=== PATIENT | male | born 1995 | race African-American/Black ===

== ENCOUNTER 2017-09-25 13:24 | Emergency (ER) | payer MEDICAID | END 2017-09-25 15:15 | disposition home or self-care (01) | LOC: ERS 13:24 | DX: M67.431 Ganglion, right wrist (principal); G43.909 Migraine, unspecified, not intractable, without status migrainosus; F31.9 Bipolar disorder, unspecified; F17.210 Nicotine dependence, cigarettes, uncomplicated; Z79.899 Other long term (current) drug therapy | CPT/HCPCS: 99282 ==

== ENCOUNTER 2019-06-17 20:23 | Emergency (ER) | payer MEDICAID, SELFPAY ==
[2019-06-17] MEDS ORDERED: Bupivacaine 0.5% 10 ML VIAL ONE (20:44)
== END 2019-06-17 21:00 | disposition home or self-care (01) ==
LOC: ERS 20:23
DX: K04.7 Periapical abscess without sinus (principal); G43.909 Migraine, unspecified, not intractable, without status migrainosus; F31.9 Bipolar disorder, unspecified; F32.9 Major depressive disorder, single episode, unspecified; F17.210 Nicotine dependence, cigarettes, uncomplicated; Z79.899 Other long term (current) drug therapy
CPT/HCPCS: 64400; J3490

== ENCOUNTER 2019-07-10 14:30 | Emergency (ER) | payer SELFPAY ==
[2019-07-10] MEDS ORDERED: Lidocaine 1% (PF) 30 ML VIAL ONE (15:39)
== END 2019-07-10 16:16 | disposition home or self-care (01) ==
LOC: ERS 14:30
DX: K04.7 Periapical abscess without sinus (principal); G43.909 Migraine, unspecified, not intractable, without status migrainosus; F17.210 Nicotine dependence, cigarettes, uncomplicated; F31.9 Bipolar disorder, unspecified; Z79.899 Other long term (current) drug therapy
CPT/HCPCS: 41800; J2001

== ENCOUNTER 2024-09-26 10:08 | Outpatient (CLI) | payer OTHER ==
[2024-09-26 10:57] LABS: #Basophils Less than 0.03 10x3/uL (0.0-0.2); %Basophils 0.2 % (0.0-1.0); %Eosinophils 2.1 % (0.0-10.0); %Lymphocytes 32.8 % (21.0-51.0); %Monocytes 8.7 % (0.0-10.0); Hematocrit 40.8 % (42.0-52.0); Hemoglobin 13.3 g/dL (14.0-18.0); Mean Corpuscular HGB CONC 32.6 g/dL (32.0-36.0); Mean Corpuscular Hemoglobin 28.2 pg (27.0-31.0); Mean Corpuscular Volume 86.4 fL (78.0-98.0); Platelet Count 199 10x3/uL (130-400); RBC Distribution Width 13.7 % (11.5-14.5); Red Blood Cell (RBC) Count 4.72 mill/uL (4.70-6.10)
== END 2024-09-26 10:09 | disposition home or self-care (01) ==
LOC: LABBT 10:08
PROVIDERS: ATTEND Orthopaedic Surgery Hand Surgery
DX: Z01.812 Encounter for preprocedural laboratory examination (principal); D17.21 Benign lipomatous neoplasm of skin and subcutaneous tissue of right arm; M67.449 Ganglion, unspecified hand
CPT/HCPCS: 85025

== ENCOUNTER 2024-09-30 08:47 | Day surgery (SDC) | payer OTHER ==
[2024-09-26 10:26] VITALS: BMI 23.6
[2024-09-30] MEDS ORDERED: Bupivacaine PF 0.5% 30 ML VIAL ONE (09:14)
[2024-09-30] MEDS ORDERED: Betamet Acet/Betamet Na Ph 30 MG/5 ML VIAL ONE (09:14)
[2024-09-30] MEDS ORDERED: Bacitracin Zinc Ointment 30 gm TUBE ONE (09:14)
[2024-09-30] MEDS ORDERED: PROPOFOL 20 ML ONE (09:20)
[2024-09-30] MEDS ORDERED: Midazolam HCl 2 mg/2 ml Vial ONE (09:20)
[2024-09-30] MEDS ORDERED: fentaNYL PF 100 MCG/2 ML SYRINGE ONE (09:20)
[2024-09-30] MEDS ORDERED: CEFAZOLIN 2 GM VIAL ONE (09:25)
[2024-09-30] MEDS ORDERED: Ondansetron PF 4 MG/2 ML Vial ONE (10:26)
[2024-09-30] MEDS ORDERED: Lidocaine 1% PF 5 ML VIAL ONE (10:26)
[2024-09-30] MEDS ORDERED: Dexamethasone 20 MG/5 ML VIAL ONE (10:26)
[2024-09-30] MEDS ORDERED: Ketorolac Tromethamine 30 MG (1 mL) VIAL ONE (11:23)
== END 2024-09-30 12:38 | disposition home or self-care (01) ==
LOC: SDC 08:47
PROVIDERS: ATTEND Orthopaedic Surgery Hand Surgery
PROC: 0JBJ0ZZ Excision of Right Hand Subcutaneous Tissue and Fascia, Open Approach (ICD-10-PCS; principal; 2024-09-30)
DX: L72.0 Epidermal cyst (principal); S69.81XA Other specified injuries of right wrist, hand and finger(s), initial encounter; D17.21 Benign lipomatous neoplasm of skin and subcutaneous tissue of right arm; M67.441 Ganglion, right hand; F32.A Depression, unspecified; F17.200 Nicotine dependence, unspecified, uncomplicated; Z91.041 Radiographic dye allergy status; Z91.013 Allergy to seafood; Z79.1 Long term (current) use of non-steroidal anti-inflammatories (NSAID); V49.9XXA Car occupant (driver) (passenger) injured in unspecified traffic accident, initial encounter
CPT/HCPCS: 88304; A6223; J0665; J0702; J1100; J1885; J2250; J2405; J2704

== ENCOUNTER 2025-03-09 10:13 | Emergency (ER) | payer MEDICAID, SELFPAY ==
[2025-03-09] MEDS ORDERED: Ibuprofen 800 MG TAB ONE (10:54)
[2025-03-09] MEDS ORDERED: Methocarbamol 500 MG TAB ONE (10:57)
== END 2025-03-09 11:56 | disposition home or self-care (01) ==
LOC: ERS 10:13
DX: M43.6 Torticollis (principal); F17.210 Nicotine dependence, cigarettes, uncomplicated
CPT/HCPCS: 70450; 72125

== ENCOUNTER 2025-04-25 00:21 | Emergency (ER) | payer MEDICAID ==
[2025-04-25] MEDS ORDERED: Lidocaine 1% w/Epinephrine 1:100K 20 ML VIAL ONE (02:11)
== END 2025-04-25 02:34 | disposition home or self-care (01) ==
LOC: ERS 00:21
DX: S61.412A Laceration without foreign body of left hand, initial encounter (principal); F17.210 Nicotine dependence, cigarettes, uncomplicated; W26.8XXA Contact with other sharp object(s), not elsewhere classified, initial encounter
CPT/HCPCS: 12001; 96372; 99283; J1885

== ENCOUNTER 2025-06-20 08:47 | Day surgery (SDC) | payer MEDICAID ==
[2025-06-16 11:10] VITALS: BMI 23.6
[2025-06-20] MEDS ORDERED: PROPOFOL 20 ML ONE (10:14)
[2025-06-20] MEDS ORDERED: Lidocaine 1% PF 5 ML VIAL ONE (10:15)
[2025-06-20] MEDS ORDERED: CEFAZOLIN 2 GM VIAL ONE (10:27)
[2025-06-20] MEDS ORDERED: Bupivacaine 0.25% HCL 30 ML VIAL ONE (10:27)
[2025-06-20] MEDS ORDERED: Ondansetron PF 4 MG/2 ML Vial ONE (11:29)
[2025-06-20] MEDS ORDERED: Ketorolac Tromethamine 30 MG (1 mL) VIAL ONE ×2 (11:35→11:50)
[2025-06-20] MEDS ORDERED: fentaNYL PF 100 MCG/2 ML SYRINGE ONE ×2 (12:29→12:48)
[2025-06-20] MEDS ORDERED: HYDROmorphone 0.5 MG/0.5 ML SYRINGE ONE (13:20)
[2025-06-20] MEDS ORDERED: HYDROcodone/Acetaminophen 5/325 mg Tablet ONE ×2 (14:28→14:31)
== END 2025-06-20 15:02 | disposition home or self-care (01) ==
LOC: SDC 08:47
PROVIDERS: ATTEND Orthopaedic Surgery
PROC: 0SJC4ZZ Inspection of Right Knee Joint, Percutaneous Endoscopic Approach (ICD-10-PCS; principal; 2025-06-20)
PROC: 0SCC0ZZ Extirpation of Matter from Right Knee Joint, Open Approach (ICD-10-PCS; principal; 2025-06-20)
DX: M23.41 Loose body in knee, right knee (principal); M23.51 Chronic instability of knee, right knee
CPT/HCPCS: J0169; J0665; J1100; J1171; J1885; J2704; J3010